=== PATIENT | male | born 1965 | race Caucasian/White ===

== ENCOUNTER → 2018-02-18 16:11 | Outpatient (CLI) | payer OTHER, SELFPAY | PROVIDERS: PCP Internal Medicine Addiction Medicine; Visit Provider Nurse Practitioner Family | DX: R40.0 Somnolence (principal); R06.83 Snoring; R00.1 Bradycardia, unspecified; R53.83 Other fatigue | CPT/HCPCS: 95806 ==

== ENCOUNTER → 2020-10-05 15:08 | Outpatient (CLI) | payer OTHER, SELFPAY ==
--- NOTE | 2020-10-05 15:12 | US_ITS ---
PROCEDURE: US TESTICULAR CLINICAL INDICATION: Pain and swelling COMPARISON: No exams were available for comparison FINDINGS: There is a small to medium-sized right-sided hydrocele. Right testicle has an unremarkable appearance measuring 4.8 x 2.5 by 3.6 cm. Blood flow is present. The epididymis has an unremarkable appearance. The left testicle measures 4.4 x 2.4 x 3 cm and has an unremarkable appearance. Blood flow noted. There is a small left hydrocele. There is a small left varicocele. IMPRESSION: Bilateral hydroceles. Small left varicocele Dictated by: Montana Foster MD 10/05/2020 16:20 Montana Foster MD in [place] 10/05/2020 16:20
--- NOTE | 2020-10-05 15:18 | US_ITS ---
PROCEDURE: US ABDOMEN LIMITED CLINICAL INDICATION: lower quadrant area Injury with pain, torn muscle COMPARISON: No exams were available for comparison FINDINGS: General survey is performed the lower abdomen the abdominal wall. No obvious muscular tear or hematoma evident. There are small bilateral lymph nodes. IMPRESSION: Unremarkable limited abdominal ultrasound as detailed above disc Dictated by: Montana Foster MD 10/05/2020 16:26 Montana Foster MD in [facility] 10/05/2020 16:26
== END ==
PROVIDERS: PCP Emergency Medicine; Visit Provider Emergency Medicine
DX: R10.9 Unspecified abdominal pain (principal); N50.82 Scrotal pain
CPT/HCPCS: 76705; 76870

== ENCOUNTER → 2020-10-26 08:57 | Outpatient (CLI) | payer OTHER, SELFPAY ==
[2020-10-26 10:07] LABS: Coronavirus 19 IgG Antibody Negative (Negative); Coronavirus 19 IgM Antibody Negative (Negative)
== END ==
PROVIDERS: Visit Provider Nurse Practitioner Family
DX: Z20.822 Contact with and (suspected) exposure to COVID-19 (principal)
CPT/HCPCS: 36415; 86328

== ENCOUNTER → 2020-11-09 11:38 | Outpatient (CLI) | payer OTHER, SELFPAY ==
--- NOTE | 2020-11-09 11:44 | XR_ITS ---
PROCEDURE: Three x-ray views left hand, 3 x-ray views left wrist, 3 x-ray views left forearm, 3 x-ray views left elbow CLINICAL INDICATION: fall/injury COMPARISON: None FINDINGS: There is a nondisplaced radial head fracture with elbow joint effusion. No additional fracture in the elbow, left forearm, left wrist, left hand. IMPRESSION: Acute left radial head fracture. Dictated by: Ruth Marie MD 11/09/2020 14:13 Ruth Marie MD in [facility] 11/09/2020 14:13
== END ==
PROVIDERS: PCP Emergency Medicine; Visit Provider Emergency Medicine
DX: S59.912A Unspecified injury of left forearm, initial encounter (principal); W19.XXXA Unspecified fall, initial encounter
CPT/HCPCS: 73080; 73090; 73110; 73130

== ENCOUNTER → 2020-12-25 14:08 | Outpatient (CLI) | payer OTHER, SELFPAY ==
--- NOTE | 2020-12-25 14:12 | XR_ITS ---
PROCEDURE: XR ELBOW LT MIN 3V CLINICAL INDICATION: left radial head fracture fu COMPARISON: CR XR ELBOW LT MIN 3V from 11/09/2020 FINDINGS: Nondisplaced longitudinal fracture involves the radial head with extension into the proximal articular surface not significantly changed from 11/09/2020. There is a displaced anterior fat pad. The joint spaces are well-preserved. No significant degenerative/arthritic changes. No erosive changes evident. Other findings:None. IMPRESSION: No change radial head fracture with intra-articular extension with elbow joint effusion Dictated by: Montana Foster MD 12/25/2020 15:27 Montana Foster MD in [place] 12/25/2020 15:27
== END ==
PROVIDERS: PCP Emergency Medicine; Visit Provider Orthopaedic Surgery
DX: S52.122A Displaced fracture of head of left radius, initial encounter for closed fracture (principal)
CPT/HCPCS: 73080

== ENCOUNTER 2021-04-08 10:54 | Emergency (ER) | payer OTHER, SELFPAY ==
[2021-04-08 11:50] VITALS: BP 146/92; PULSE 83; RESP 21; TEMP 36.8; O2SAT 98; BMI 34.2
--- NOTE | 2021-04-08 12:21 | HMH.EDUTC ---
[facility] Disposition Clinical Impression: Sinusitis Qualifiers: Sinusitis location: unspecified location Chronicity: unspecified Qualified Code(s): J32.9 - Chronic sinusitis, unspecified Disposition: Home, Self-Care Condition on Discharge: Good Instructions: Sinusitis, DI for Sinusitis Additional Instructions: *Monitor Temp, Over the counter Motrin or Tylenol as directed/as needed Tylenol every 4 hours and Motrin every 6 hours (as long as your family doctor has told you that you can take it) for fever or pain. and straight to ER if unable to lower temp less than 101.0 after medication given Drink plenty of water *Sleep elevated *Humidifier/Vaporizer *Flonase 2 sprays in each nostril daily but be aware that it may take 2-3 days before you notice improvement Follow up IMMEDIATELY for new or worsening symptoms or no Noticeable improvement over the next 48-72 hours. 911 for difficulty breathing or swallowing You were tested for today for COVID19 your test result should be back in the next 24-48 hours, you may call to the [facility] to see if your test results are back in the next 48 hours [phone] [facility] hours are 9am-9pm You was given a handout with instructions for Self Quarantine and Self isolation for while you wait on test results and what to do if they are positive If you are positive the Health Dept will be contacting you also Prescriptions: Fluticasone Propionate [Flonase 50mcg nasal spray 16gm] 1 spr NS DAILY #1 bottle Transmission Status: Pending to [facility] Azithromycin [Z-Berhane 250mg Tab] 250 mg PO DIRECTED #6 tab Transmission Status: Pending to [facility] Referrals: Derrick Freitas MD [Primary Care Provider] - As needed Time of Disposition: 12:47 Medical Decision Making - Ruben Inquiry Pt receiving controlled substance: No Ruben was queried for this patient: No Vital Signs: 04/08/21 11:50 Temperature 98.3 F Temperature Source Oral Pulse Rate [Right Brachial] 83 Respiratory Rate 21 Blood Pressure [Right Arm] 146/92 H Blood Pressure Mean [Right Arm] 110 Blood Pressure Source [Right Arm] Automatic Cuff Blood Pressure Position [Right Arm] Sitting 02 Sat by Pulse Oximetry 98 Oxygen Delivery Method Room Air Orders (Tests/Meds): ED MEDICATIONS Discontinued Medications Generic Name Dose Route Start Last Admin Trade Name Luis Enrique PRN Reason Stop Dose Admin Methylprednisolone Sodium Succinate 125 mg 04/08/21 12:23 04/08/21 12:30 Methylprednisolone Sod Succ 125mg Vial IM 04/08/21 12:24 125 mg ONCE ONE Administration ORDERS Category Date Time Status Covid-19 Nasal PCR ([facility]) Routine Lab 04/08/21 11:50 Received [facility] HPI - General Stated complaint: covid test Time Seen by Provider: 04/08/21 12:21 Mode of Arrival: Ambulatory Source of Information: Patient Limitations: No Limitations Description of Symptoms (Recalled from Triage Doc. by RN): PATIENT C/O NASAL CONGESTION AND SINUS PAIN SINCE THURSDAY. REQUESTING COVID TEST HEENT Symptoms (Recalled from RN notes): Yes Resp Symptoms (Recalled from RN notes): No Skin Symptoms (Recalled from RN notes): No MS Symptoms (Recalled from RN notes): No Functional Status (Recalled from RN notes): WNL - History of Present Illness Provider Complaint: Patient states that he has been having sinus congestion on and off for a couple of weeks but on Thursday he had a scratchy throat then started having sinus pain and pressure along with sinus congestion States that today he was not able to breath out of his nose and felt like he had some swelling in his sinuses under his eyes so he came in to get checked and wanted to get a COVID test to rule it out too - Related Data Home Medications Medication Instructions Recorded Confirmed levothyroxine 88 mcg capsule 88 mcg PO DAILY 10/05/20 12/25/20 tamsulosin 0.4 mg capsule 0.4 mg PO DAILY 10/05/20 12/25/20 testosterone 50 mg/5 gram (1 %) 1 packet TRANSDERMA DAILY 10/05/20 12/25/20 t
[2021-04-08 12:52] VITALS: BP 146/92; PULSE 83; RESP 21; TEMP 36.8; O2SAT 98
== END 2021-04-08 12:54 | disposition home or self-care (01) ==
PROVIDERS: Emergency Provider Nurse Practitioner; PCP Emergency Medicine
DX: J32.9 Chronic sinusitis, unspecified (principal); Z20.822 Contact with and (suspected) exposure to COVID-19; F17.290 Nicotine dependence, other tobacco product, uncomplicated; Z88.0 Allergy status to penicillin; Z88.2 Allergy status to sulfonamides
CPT/HCPCS: 96372; 99202; G0463; U0003

== ENCOUNTER → 2021-06-03 15:58 | Outpatient (CLI) | payer OTHER, SELFPAY ==
[2021-06-03 17:06] LABS: Coronavirus 19 IgG Antibody Positive (Negative); Coronavirus 19 IgM Antibody Negative (Negative)
== END ==
PROVIDERS: Visit Provider Nurse Practitioner Family
DX: Z20.822 Contact with and (suspected) exposure to COVID-19 (principal)
CPT/HCPCS: 86328

== ENCOUNTER → 2021-09-24 08:46 | Outpatient (CLI) | payer OTHER, SELFPAY | PROVIDERS: PCP Emergency Medicine; Visit Provider Nurse Practitioner | DX: Z20.822 Contact with and (suspected) exposure to COVID-19 (principal) | CPT/HCPCS: C9803; U0003; U0005 ==

== ENCOUNTER → 2021-10-22 16:42 | Outpatient (CLI) | payer OTHER, SELFPAY ==
[2021-10-22 18:14] LABS: Free T4 (Free Thyroxine) 1.31 ng/dl (0.78-2.19)
[2021-10-22 18:28] LABS: Thyroid Stimulating Hormone 4.37 uIU/mL (0.465-4.68)
== END ==
PROVIDERS: PCP Emergency Medicine; Visit Provider Emergency Medicine
DX: R53.83 Other fatigue (principal)
CPT/HCPCS: 84439; 84443

== ENCOUNTER → 2021-11-13 16:00 | Outpatient (CLI) | payer OTHER, SELFPAY ==
[2021-11-13 18:32] LABS: Basophils # 0.1 K/mm3 (0-0.2); Basophils % 1.5 % (0.1-2.0); Eosinophils # 0.2 K/mm3 (0.0-0.4); Eosinophils % 2.2 % (0.1-12.0); Hematocrit 49.9 % (42.0-52.0); Hemoglobin 16.3 g/dL (14.1-18.0); Lymphocytes # 3.1 K/mm3 (0.7-4.5); Lymphocytes % 40.9 % (10-50); Mean Corpuscular HGB Conc 32.6 g/dL (31.8-35.4); Mean Corpuscular Hemoglobin 30.9 pg (27.0-31.2); Mean Corpuscular Volume 94.8 fl (80-94); Mean Platelet Volume 7.9 fl (7.4-10.4); Monocytes # 0.4 K/mm3 (0.1-1.0); Monocytes % 4.8 % (1.7-9.3); Neutrophils # 3.8 K/mm3 (1.8-7.8); Neutrophils % 50.6 % (37.0-80.0); Platelet Count 316 K/mm3 (142-424); Red Blood Count 5.26 M/mm3 (4.60-6.20); Red Cell Distribution Width 13.4 % (11.5-17.5); White Blood Count 7.5 K/mm3 (4.8-10.8)
[2021-11-13 18:51] LABS: Alanine Aminotransferase 51 U/L (12-78); Albumin Level 4.9 g/dl (3.5-5.0); Alkaline Phosphatase 80 U/L (38-126); Anion Gap 14.2 mEq/L (5-15); Aspartate Amino Transferase 42 U/L (17-59); Bilirubin,Total 0.6 mg/dl (0.2-1.3); Blood Urea Nitrogen 12 mg/dl (9-20); Calcium 9.4 mg/dl (8.4-10.2); Carbon Dioxide 25 mmol/L (22.0-30.0); Chloride 106 mmol/L (98-107); Chol/HDL Ratio 5.4 (1-3.5); Cholesterol 193 mg/dl (140-200); Estimated Glomerular Filt Rate 100 ml/min (>60); GFR (African American) 121 ML/MIN (>60); Globulin 2.4 g/dL (1.3-3.2); Glucose 94 mg/dl (74-100); HDL Cholesterol 36 mg/dl (40-60); Potassium 4.2 mmoL/L (3.5-5.1); Sodium 141 mmol/L (136-145); Total Protein,Serum 7.3 g/dl (6.3-8.2); Triglycerides 98 mg/dl (30-150); VLDL Cholesterol 20 mg/dL (0-40)
[2021-11-13 19:04] LABS: Direct LDL Cholesterol 143.11 mg/dL (100-129)
[2021-11-13 19:10] LABS: 25-OH Vitamin D, Total 50.1 ng/mL (30-100)
[2021-11-13 19:11] LABS: Free T4 (Free Thyroxine) 1.37 ng/dl (0.78-2.19)
[2021-11-13 19:24] LABS: Prostate Specific Ag Screen 1.1 ng/ml (0.0-4.0); Thyroid Stimulating Hormone 3.55 uIU/mL (0.465-4.68)
[2021-11-13 19:42] LABS: Vitamin B12 558 pg/mL (239-931)
== END ==
PROVIDERS: Visit Provider Emergency Medicine
DX: R53.83 Other fatigue (principal); E03.9 Hypothyroidism, unspecified; K59.00 Constipation, unspecified; Z12.5 Encounter for screening for malignant neoplasm of prostate
CPT/HCPCS: 80053; 80061; 82306; 82607; 84439; 84443; 85025; G0103

== ENCOUNTER → 2021-11-30 07:50 | Outpatient (CLI) | payer OTHER, SELFPAY ==
--- NOTE | 2021-11-30 07:51 | MR_ITS ---
FINAL REPORT CLINICAL HISTORY: right elbow pain. nki. pain with lifting and pulling. FINDINGS: Multiplanar MR imaging of the right elbow was performed without contrast. Artifact is noted which limits exam sensitivity. The bony structures are intact without evidence of fracture, bone bruise or marrow edema. There is no evidence of osteochondral lesion. The ligaments appear intact. There is a partial tear at the origin of the common extensor tendon. Intrasubstance tears are seen of the distal triceps tendon with tendinitis and peritendinitis. The common flexor tendon is intact. The biceps tendon is intact. The distal triceps tendon is intact. The brachialis tendon is intact. The musculature has an unremarkable appearance. No soft tissue mass or cyst is identified. There is a small joint effusion. No focal abnormality is identified of the ulnar nerve. IMPRESSION: Partial tear at the origin of the common extensor tendon. Intrasubstance tears of the distal triceps tendon with tendinitis and peritendinitis. Small joint effusion. Reviewed, Interpreted and Dictated by Chadd Paniagua III, MD Transcribed by Radha Gallagher Authenticated by Chadd Paniagua III, MD on 12/02/2021 08:04:48 AM [facility]
== END ==
PROVIDERS: PCP Emergency Medicine; Visit Provider Emergency Medicine
DX: M25.521 Pain in right elbow (principal)
CPT/HCPCS: 73221

== ENCOUNTER 2022-02-24 16:00 | Outpatient (RCR) | payer OTHER, SELFPAY | END 2022-04-01 16:30 | disposition home or self-care (01) | LOC: PT.CARL 16:00 | PROVIDERS: PCP Emergency Medicine; Visit Provider Orthopaedic Surgery | DX: S46.201A Unspecified injury of muscle, fascia and tendon of other parts of biceps, right arm, initial encounter (principal) | CPT/HCPCS: 20560; 20561; 97010; 97014; 97033; 97035; 97110; 97163; 97530; G0283 ==

== ENCOUNTER → 2022-06-25 16:45 | Outpatient (CLI) | payer OTHER, SELFPAY | LOC: LAB.DROPOF 06-26 06:42 | PROVIDERS: PCP Emergency Medicine; Visit Provider Emergency Medicine | DX: R82.90 Unspecified abnormal findings in urine (principal) | CPT/HCPCS: 87086 ==

== ENCOUNTER → 2022-07-04 07:18 | Outpatient (CLI) | payer OTHER, SELFPAY ==
--- NOTE | 2022-07-04 07:19 | CT_ITS ---
FINAL REPORT CLINICAL HISTORY: renal colic FINDINGS: Axial CT images of the abdomen and pelvis were obtained without intravenous contrast. Coronal reformatted images were also obtained.This study was performed with techniques to keep radiation doses as low as reasonably achievable (ALARA). Individualized dose reduction techniques using automated exposure control or adjustment of mA and/or kV according to the patient's size were employed. Abdomen: The lung bases are clear. There are several less than 3 mm nonobstructing bilateral renal stones. There is no hydronephrosis. There is a 5 mm distal right ureteral stone at the level of the mid pelvis. There is periureteral stranding at this level likely representing edema. The gallbladder is present. The liver, spleen and pancreas have an unremarkable, unenhanced appearance. No mass or adenopathy is seen. Pelvis: Images of the pelvis reveal no mass or abnormal fluid collection. The appendix is normal. There are phleboliths in the pelvis. IMPRESSION: Distal right ureteral stone with periureteral stranding but no hydronephrosis or hydroureter. Bilateral nephrolithiasis. Reviewed, Interpreted and Dictated by Chadd Paniagua III, MD Transcribed by Ernesto Thacker Authenticated and [facility]
== END ==
PROVIDERS: PCP Emergency Medicine; Visit Provider Emergency Medicine
DX: N23 Unspecified renal colic (principal)
CPT/HCPCS: 74176

== ENCOUNTER 2022-08-11 16:00 | Outpatient (RCR) | payer OTHER, SELFPAY | END 2022-08-21 14:57 | disposition home or self-care (01) | LOC: PT.CARL 16:00 | PROVIDERS: PCP Emergency Medicine; Visit Provider Orthopaedic Surgery | DX: S46.211A Strain of muscle, fascia and tendon of other parts of biceps, right arm, initial encounter (principal); Z98.890 Other specified postprocedural states | CPT/HCPCS: 97010; 97014; 97110; 97140; 97163; 97530; G0283 ==

== ENCOUNTER → 2023-03-12 09:40 | Outpatient (CLI) | payer OTHER, SELFPAY ==
--- NOTE | 2023-03-12 09:40 | US_ITS ---
FINAL REPORT CLINICAL HISTORY: DYSPHAGIA FINDINGS: Thyroid ultrasound: The right lobe of the thyroid gland measures 4.3 x 1.3 x 2.3 cm in size. The lobe is heterogeneous in echotexture. There are 2 right sided nodules, isoechoic and solid, measuring up to 9 mm in diameter. These are category TI-RADS 3 nodules. The left lobe of the thyroid gland measures 3.4 x 1.35 x 1.7 cm in size. There is 1 hypoechoic nodule in the left thyroid lobe that measures 4 mm in size, a TI-RADS category 4 nodule. The isthmus of the thyroid gland measures 0.3 cm in thickness. IMPRESSION: Heterogeneous thyroid gland diffusely, with 3 subcentimeter nodules as described above. Per TI-RADS criteria no follow-up of these nodules is required. Reviewed, Interpreted and Dictated by Brayan Goldberg MD Transcribed by Catrina Prather Authenticated and [facility]
== END ==
PROVIDERS: PCP Emergency Medicine; Visit Provider Emergency Medicine
DX: R13.10 Dysphagia, unspecified (principal)
CPT/HCPCS: 76536

== ENCOUNTER 2024-01-02 22:18 | Emergency (ER) | payer OTHER, SELFPAY ==
--- NOTE | 2024-01-02 22:31 | CT_ITS ---
PROCEDURE INFORMATION: Exam: CT Abdomen And Pelvis With Contrast Exam date and time: 01/02/2024 11:14 PM Age: 58 years old Clinical indication: Abdominal pain; Additional info: Crohn's, llq pain TECHNIQUE: Imaging protocol: Computed tomography of the abdomen and pelvis with contrast. Radiation optimization: All CT scans at this facility use at least one of these dose optimization techniques: automated exposure control; mA and/or kV adjustment per patient size (includes targeted exams where dose is matched to clinical indication); or iterative reconstruction. Contrast material: ISOVUE; Contrast volume: 75 ml; Contrast route: IV; COMPARISON: CT ABDOMEN PELVIS WO CON 07/04/2022 7:22 AM FINDINGS: Liver: Mild hepatic steatosis. No hepatomegaly or liver lesion. Gallbladder and bile ducts: Normal. No calcified stones. No ductal dilation. Pancreas: Normal. No ductal dilation. Spleen: Normal. No splenomegaly. Adrenal glands: Normal. No mass. Kidneys and ureters: Mild left hydronephrosis secondary to a 4 x 3 mm calculus in the proximal ureter. Bilateral 1-2 mm calyceal calculi. No renal masses or cysts. Stomach and bowel: Unremarkable. No obstruction. No mucosal thickening. Appendix: No evidence of appendicitis. Intraperitoneal space: Unremarkable. No free air. No significant fluid collection. Vasculature: Minimal atherosclerotic disease without aneurysm. Lymph nodes: Unremarkable. No enlarged lymph nodes. Urinary bladder: Unremarkable as visualized. Reproductive: Unremarkable as visualized. Bones/joints: Unremarkable. No acute fracture. Soft tissues: Small fat containing umbilical hernia. IMPRESSION: 1. Mild left hydronephrosis secondary to a 4 x 3 mm calculus in the proximal ureter. 2. Normal-appearing large and small bowel.
--- NOTE | 2024-01-02 22:33 | HMH.EDGENADL ---
Discharge Plan Disposition Patient Disposition: Home, Self-Care Prescriptions Prescriptions: New promethazine 25 mg suppository 25 mg MT Q6H PRN (Reason: sedation) Qty: 12 0RF ketorolac 10 mg tablet 10 mg PO Q4-6H PRN (Reason: pain) 17 Days Qty: 30 0RF oxycodone 5 mg tablet 5 mg PO Q8H PRN (Reason: pain) Qty: 12 0RF No Action mesalamine [Lialda] 1.2 gram tablet,delayed release (DR/EC) 2.4 g PO DAILY Men 50 Plus Multivitamin 300-600-300 mcg tablet 1 tab PO DAILY levofloxacin 500 mg tablet 500 mg PO DAILY Qty: 7 0RF testosterone 20.25 mg/1.25 gram (1.62 %) gel in metered-dose pump 2 pump topical DAILY Qty: 75 0RF levothyroxine 88 mcg tablet See Rx Instructions .ROUTE .COMPLEX Qty: 90 2RF Dose Instruction: TAKE ONE TABLET BY MOUTH EVERY DAY Rx Instructions: TAKE ONE TABLET BY MOUTH EVERY DAY tamsulosin [Flomax] 0.4 mg capsule 0.4 mg PO DAILY Qty: 90 3RF fluticasone propionate 120 SPR/BOT bottle 1 spr intranasal DAILY Qty: 1 0RF Rx Instructions: each nostril daily Referrals Follow up/Referrals: Elliot Greer MD [Primary Care Provider] - See instructions Activity Restrictions/Add. Instructions Additional Instructions/Restrictions: Please take tamsulosin, antiemetics and pain medications as needed for symptomatic control. If you develop fever or uncontrollable pain, recommend returning to be evaluated. Recommend following up with your urologist. Clinical Impressions Clinical Impression: Hydronephrosis concurrent with and due to calculi of kidney and ureter, Abdominal pain, LLQ Discharge ED Provider: Evin Rebolledo General Adult HPI <Evin Rebolledo MD - Last Filed: 01/02/24 22:51> General Chief complaint: PAIN Stated complaint: Lower left abdominal pain Time Seen by Provider: 01/02/24 22:23 History of Present Illness HPI narrative: Patient is a 58-year-old male with past medical history of Crohn's on mesalamine, previous ureterolithiasis requiring lithotripsy who presents emergency department for evaluation of left lower quadrant abdominal pain. Onset was acute, occurring approximately 930, severe and debilitating with associated retching, no vomiting. Last bowel movement yesterday. Passing flatus today. Bowel movements are intermittently formed versus diarrhea at baseline, nonbloody. Patient has never had surgery in his abdomen. No scrotal pain or significant dysuria. Pain has largely subsided prior to arrival. He presents here for continued evaluation. Related Data Home Medications Medication Instructions Recorded Confirmed mesalamine 1.2 gram tablet,delayed 2.4 g PO DAILY 11/13/21 06/25/22 release (Lialda) sqgezbyi-qr-errif 300 mcg-K 60 1 tab PO DAILY 06/25/22 06/25/22 mcg-lycop 600 mcg-lutein 300 mcg tablet (Men 50 Plus Multivitamin) Previous Rx's Medication Instructions Recorded fluticasone propionate 50 1 spr intranasal DAILY ##1 04/08/21 mcg/actuation nasal spray,suspension levofloxacin 500 mg tablet 500 mg PO DAILY #7 tabs 06/25/22 testosterone 2 pump topical DAILY #75 grams 06/24/23 levothyroxine 88 mcg tablet See Rx Instructions .Route 09/16/23 .COMPLEX #90 tabs tamsulosin 0.4 mg capsule (Flomax) 0.4 mg PO DAILY #90 caps 10/12/23 ketorolac 10 mg tablet 10 mg PO Q4-6H PRN pain 17 days 01/02/24 #30 tabs oxycodone 5 mg tablet 5 mg PO Q8H PRN pain #12 tabs 01/02/24 promethazine 25 mg rectal 25 mg MT Q6H PRN sedation #12 ea 01/02/24 suppository Allergies Allergy/AdvReac Type Severity Reaction Status Date / Time Penicillins Allergy Mild Rash Verified 06/25/22 16:39 Sulfa (Sulfonamide Allergy Verified 06/25/22 16:39 Antibiotics) [facility] <Evin Rebolledo MD - Last Filed: 01/02/24 22:51> [facility] Disclaimer: The information contained in this section may have been updated after the patient was seen, as this information can be updated by other users. Medical History (Updated 01/02/24 @ 23:46 by Maury Mendez MD) Kidney stones Social History (Updated 06/25/22 @ 16:45 by CLARIBEL Latif) Smoking Status: Never smoker second hand exposure: No alcohol intake: current substance use type: denies use current occupational status: employed and other Travel in the last 8 weeks: None housing: house <Evin Rebolledo MD - Last Filed: 01/02/24 22:51> ROS Obtained: Yes Systems reviewed as appropriate & no additional complaints except as documented Physical Exam <Evin Rebolledo MD - Last Filed: 01/02/24 22:51> General General appearance: alert and in no apparent distress Head Head exam: atraumatic and normocephalic Eye Eye exam: Present PERRL ENT ENT exam: Present mucous membranes moist Neck Neck exam: Present normal inspection Chest Chest inspection: Present normal inspection and symmetric chest wall rise Respiratory Respiratory exam: Absent respiratory distress Cardiovascular Cardiovascular exam: Present regular rate and normal rhythm Abdominal Exam Abdominal exam: Present soft and other (No hernias palpated in the inguinal region); Absent tenderness Extremities Exam Extremities exam: Present normal inspection Neurological Exam Neurological exam: Present alert Psychiatric Psychiatric exam: Present normal affect Skin Skin exam: Present warm and dry Medical Decision Making <Evin Rebolledo MD - Last Filed: 01/02/24 22:51> Ruben Inquiry Pt receiving controlled substance: No Vital Signs: 01/02/24 22:44 Temperature 98.2 F Temperature Source Oral Pulse Rate [Right Brachial] 77 Respiratory Rate 18 Blood Pressure [Right Arm] 116/113 H Blood Pressure Mean [Right Arm] 114 Blood Pressure Source [Right Arm] Automatic Cuff Blood Pressure Position [Right Arm] Sitting 02 Sat by Pulse Oximetry 96 Oxygen Delivery Method Room Air Lab Data Lab Results 01/02/24 22:24: Urine Color Yellow, Urine Appearance Clear, Urine pH 6.0, Ur Specific Higginson >= 1.030, Urine Protein Negative, Urine Glucose (UA) Negative, Urine Ketones Negative, Urine Blood 2+, Urine Nitrate Negative, Urine Bilirubin Negative, Urine Urobilinogen 0.2, Ur Leukocyte Esterase Negative, Urine RBC 20-50, Urine WBC Occasional, Ur Squamous Epith Cells Occasional, Urine Bacteria Trace 01/02/24 22:42: WBC 8.3, RBC 4.92, Hgb 15.2, Hct 47.1, MCV 95.8 H, MCH 30.8, MCHC 32.2, RDW 13.6, Plt Count 257, MPV 7.9, Neut % (Auto) 51.4, Lymph % (Auto) 36.5, Hughes % (Auto) 7.2, Eos % (Auto) 3.0, Baso % (Auto) 1.9, Neut # (Auto) 4.2, Lymph # (Auto) 3.0, Hughes # (Auto) 0.6, Eos # (Auto) 0.3, Baso # (Auto) 0.2, ESR 5, Sodium 141, Potassium 3.6, Chloride 109 H, Carbon Dioxide 26, Anion Gap 9.6, BUN 13, Creatinine 0.80, Estimated Creat Clear 144, Estimated GFR 99, Est GFR ( Amer) 120, Glucose 114 H, Calcium 9.2, Total Bilirubin 0.5, AST 36, ALT 40, Alkaline Phosphatase 81, Total Protein 6.6, Albumin 4.2, Globulin 2.4, Albumin/Globulin Ratio 1.8, Lipase 215 01/02/24 22:42 01/02/24 22:42 Orders (Tests/Meds): ED MEDICATIONS Discontinued Medications Generic Name Dose Route Start Last Admin Trade Name Freq PRN Reason Stop Dose Admin Iopamidol 75 ml 01/02/24 23:20 01/02/24 23:21 Iopamidol-370 (76%);100ml Bottle IV 01/02/24 23:21 75 ml ONCE ONE Administration Ketorolac Tromethamine 30 mg 01/02/24 22:31 01/02/24 23:01 Ketorolac 30mg/Ml Vial IV 01/02/24 22:32 30 mg ONCE ONE Administration Ondansetron HCl 4 mg 01/02/24 22:59 01/02/24 23:01 Ondansetron 4mg/2ml Vial IV 01/02/24 23:00 4 mg ONCE ONE Administration Sodium Chloride 10 ml 01/02/24 23:20 01/02/24 23:21 Sodium Chloride 0.9% 10ml Syr (Rad Only) IV 01/02/24 23:21 10 ml ONCE ONE Administration ORDERS Category Date Time Status CT abdomen pelvis w con Stat Cat Scan 01/02/24 22:31 Completed CBC w/Auto Diff [Complete Blood Count Auto Diff] Stat Lab 01/02/24 22:42 Completed CMP [Comprehensive Metabolic Panel] Stat Lab 01/02/24 22:42 Completed ESR [Erythrocyte Sedimentation Rate] Stat Lab 01/02/24 22:42 Completed Lipase Stat Lab 01/02/24 22:42 Completed UA [Urinalysis and Microscopic] Stat Lab 01/02/24 22:24 Completed Medical Decision Narrative: In summary patient is 58-year-old male past medical history described above presents emergency department for evaluation of left lower quadrant abdominal pain in the setting of Crohn's and previous ureterolithiasis requiring lithotripsy. Patient is hemodynamically stable and nontoxic-appearing upon arrival, afebrile. Differential diagnosis includes ureterolithiasis, diverticulitis, among others. Workup will be conducted with hematologic labs, urinalysis, CT abdomen pelvis with IV contrast. Initial inventions include Toradol. Workup was largely pending at time of transfer of care to the oncoming physician, Dr. Mendez. <Maury Mendez MD - Last Filed: 01/03/24 00:06> Vital Signs: 01/02/24 22:44 Temperature 98.2 F Temperature Source Oral Pulse Rate [Right Brachial] 77 Respiratory Rate 18 Blood Pressure [Right Arm] 116/113 H Blood Pressure Mean [Right Arm] 114 Blood Pressure Source [Right Arm] Automatic Cuff Blood Pressure Position [Right Arm] Sitting 02 Sat by Pulse Oximetry 96 Oxygen Delivery Method Room Air Lab Data Lab Results 01/02/24 22:24: Urine Color Yellow, Urine Appearance Clear, Urine pH 6.0, Ur Specific Higginson >= 1.030, Urine Protein Negative, Urine Glucose (UA) Negative, Urine Ketones Negative, Urine Blood 2+, Urine Nitrate Negative, Urine Bilirubin Negative, Urine Urobilinogen 0.2, Ur Leukocyte Esterase Negative, Urine RBC 20-50, Urine WBC Occasional, Ur Squamous Epith Cells Occasional, Urine Bacteria Trace 01/02/24 22:42: WBC 8.3, RBC 4.92, Hgb 15.2, Hct 47.1, MCV 95.8 H, MCH 30.8, MCHC 32.2, RDW 13.6, Plt Count 257, MPV 7.9, Neut % (Auto) 51.4, Lymph % (Auto) 36.5, Hughes % (Auto) 7.2, Eos % (Auto) 3.0, Baso % (Auto) 1.9, Neut # (Auto) 4.2, Lymph # (Auto) 3.0, Hughes # (Auto) 0.6, Eos # (Auto) 0.3, Baso # (Auto) 0.2, ESR 5, Sodium 141, Potassium 3.6, Chloride 109 H, Carbon Dioxide 26, Anion Gap 9.6, BUN 13, Creatinine 0.80, Estimated Creat Clear 144, Estimated GFR 99, Est GFR ( Amer) 120, Glucose 114 H, Calcium 9.2, Total Bilirubin 0.5, AST 36, ALT 40, Alkaline Phosphatase 81, Total Protein 6.6, Albumin 4.2, Globulin 2.4, Albumin/Globulin Ratio 1.8, Lipase 215 Orders (Tests/Meds): ED MEDICATIONS Discontinued Medications Generic Name Dose Route Start Last Admin Trade Name Freq PRN Reason Stop Dose Admin Iopamidol 75 ml 01/02/24 23:20 01/02/24 23:21 Iopamidol-370 (76%);100ml Bottle IV 01/02/24 23:21 75 ml ONCE ONE Administration Ketorolac Tromethamine 30 mg 01/02/24 22:31 01/02/24 23:01 Ketorolac 30mg/Ml Vial IV 01/02/24 22:32 30 mg ONCE ONE Administration Ondansetron HCl 4 mg 01/02/24 22:59 01/02/24 23:01 Ondansetron 4mg/2ml Vial IV 01/02/24 23:00 4 mg ONCE ONE Administration Sodium Chloride 10 ml 01/02/24 23:20 01/02/24 23:21 Sodium Chloride 0.9% 10ml Syr (Rad Only) IV 01/02/24 23:21 10 ml ONCE ONE Administration ORDERS Category Date Time Status CT abdomen pelvis w con Stat Cat Scan 01/02/24 22:31 Completed CBC w/Auto Diff [Complete Blood Count Auto Diff] Stat Lab 01/02/24 22:42 Completed CMP [Comprehensive Metabolic Panel] Stat Lab 01/02/24 22:42 Completed ESR [Erythrocyte Sedimentation Rate] Stat Lab 01/02/24 22:42 Completed Lipase Stat Lab 01/02/24 22:42 Completed UA [Urinalysis and Microscopic] Stat Lab 01/02/24 22:24 Completed Medical Decision Narrative: In summary patient is 58-year-old male past medical history described above presents emergency department for evaluation of left lower quadrant abdominal pain in the setting of Crohn's and previous ureterolithiasis requiring lithotripsy. Patient is hemodynamically stable and nontoxic-appearing upon arrival, afebrile. Differential diagnosis includes ureterolithiasis, diverticulitis, among others. Workup will be conducted with hematologic labs, urinalysis, CT abdomen pelvis with IV contrast. Initial inventions include Toradol. Workup was largely pending at time of transfer of care to the oncoming physician, Dr. Mendez. On reassessment, on my interpretation of laboratory studies, urine shows no evidence of infection, does show many red blood cells. CBC and CMP are nonactionable. CT independently interpreted me and shows approximately 4 x 3 mm left ureteral calculus with mild hydronephrosis. Otherwise unremarkable CT scan. I had extensive discussion with patient regarding these findings. He was discharged in stable condition with instructions to follow-up with his urologist and he was prescribed symptomatic pain medication and antiemetics. Return precautions given. Critical Care <Evin Rebolledo MD - Last Filed: 01/02/24 22:51> Critical Care Time Critical Care Time: No
[2024-01-02 22:44] VITALS: BP 116/113; PULSE 77; RESP 18; TEMP 36.8; O2SAT 96; BMI 32.3
[2024-01-02 22:45] LABS: Microscopic, Urine URINE MICROSCOPIC (MICROSCOPIC)
[2024-01-02 22:46] LABS: Appearance,Urine CLEAR (Clear); Bilirubin,Urine Negative (Negative); Blood, Urine 2+ (Negative); Color,Urine YELLOW (Yellow); Glucose,Urine (UA) Negative (Negative); Ketones,Urine Negative (Negative); Leukocyte Esterase,Urine Negative (Negative); Nitrate,Urine Negative (Negative); Protein,Urine Negative (Negative); Specific Gravity, Urine >= 1.030 (1.005-1.030); Urobilinogen,Urine 0.2 EU/dl (0.2)
[2024-01-02 22:57] LABS: Bacteria,Urine Trace /lpf; RBC,Urine 20-50 #/hpf (0-3); Squamous Epithelial Cell,Urine Occasional #/hpf (0-5); WBC,Urine Occasional #/hpf (0-3)
[2024-01-02 22:57] LABS: Basophils # 0.2 K/mm3 (0-0.2); Basophils % 1.9 % (0.1-2.0); Eosinophils # 0.3 K/mm3 (0.0-0.4); Hematocrit 47.1 % (42.0-52.0); Hemoglobin 15.2 g/dL (14.1-18.0); Lymphocytes % 36.5 % (10-50); Mean Corpuscular HGB Conc 32.2 g/dL (31.8-35.4); Mean Corpuscular Hemoglobin 30.8 pg (27.0-31.2); Mean Corpuscular Volume 95.8 fl (80-94); Mean Platelet Volume 7.9 fl (7.4-10.4); Monocytes # 0.6 K/mm3 (0.1-1.0); Monocytes % 7.2 % (1.7-9.3); Neutrophils # 4.2 K/mm3 (1.8-7.8); Neutrophils % 51.4 % (37.0-80.0); Platelet Count 257 K/mm3 (142-424); Red Blood Count 4.92 M/mm3 (4.60-6.20); Red Cell Distribution Width 13.6 % (11.5-17.5); White Blood Count 8.3 K/mm3 (4.8-10.8)
[2024-01-02 23:00] LABS: Chloride 109 mmol/L (98-107); Potassium 3.6 mmoL/L (3.5-5.1); Sodium 141 mmol/L (136-145)
[2024-01-02] MEDS: ONDANSETRON 4MG/2ML VIAL 4 MG IV (23:01)
[2024-01-02] MEDS: KETOROLAC 30MG/ML VIAL 30 MG IV (23:01)
[2024-01-02 23:02] LABS: Alanine Aminotransferase 40 U/L (12-78); Aspartate Amino Transferase 36 U/L (17-59); Blood Urea Nitrogen 13 mg/dl (9-20); Creatinine Clearance Estimated 144 mL/min (50-200); Estimated Glomerular Filt Rate 99 ml/min (>60); GFR (African American) 120 ML/MIN (>60)
[2024-01-02 23:03] LABS: Albumin Level 4.2 g/dl (3.5-5.0); Albumin/Globulin Ratio 1.8 (1.1-1.8); Alkaline Phosphatase 81 U/L (38-126); Anion Gap 9.6 mEq/L (5-15); Bilirubin,Total 0.5 mg/dl (0.2-1.3); Calcium 9.2 mg/dl (8.4-10.2); Carbon Dioxide 26 mmol/L (22.0-30.0); Globulin 2.4 g/dL (1.3-3.2); Glucose 114 mg/dl (74-100); Total Protein,Serum 6.6 g/dl (6.3-8.2)
[2024-01-02 23:12] LABS: Lipase 215 U/L (23-300)
--- NOTE | 2024-01-02 23:12 | PC.NURSE ---
Pt in CT
[2024-01-02] MEDS: IOPAMIDOL-370 (76%);100ML BOTTLE 75 ML IV (23:21)
[2024-01-02] MEDS: SODIUM CHLORIDE 0.9% 10ML SYR (RAD ONLY) 10 ML IV (23:21)
[2024-01-02 23:24] LABS: Erythrocyte Sedimentation Rate 5 mm/hr (0-20)
[2024-01-03 00:13] VITALS: BP 155/92; PULSE 66; RESP 15; TEMP 36.7; O2SAT 97
== END 2024-01-03 00:14 | disposition home or self-care (01) ==
PROVIDERS: Emergency Provider Emergency Medicine; PCP Family Medicine
DX: N13.0 Hydronephrosis with ureteropelvic junction obstruction (principal); R10.32 Left lower quadrant pain; R11.0 Nausea; Z87.442 Personal history of urinary calculi; K50.90 Crohn's disease, unspecified, without complications
CPT/HCPCS: 74177; 80053; 81001; 83690; 85025; 85651; 96374; 96375; 99285; J2405; Q9967

== ENCOUNTER 2024-03-02 21:50 | Outpatient (CLI) | payer OTHER, SELFPAY ==
[2024-03-11 14:06] LABS: Size 6x5; Specimen Type Not Provided
[2024-03-11 14:07] LABS: Ca oxalate dihydrate 70
== END 2024-03-02 23:59 | disposition home or self-care (01) ==
LOC: LAB.DROPOF 21:51
PROVIDERS: PCP Family Medicine; Visit Provider Family Medicine
DX: N13.2 Hydronephrosis with renal and ureteral calculous obstruction (principal)
CPT/HCPCS: 82370

== ENCOUNTER 2024-04-01 10:53 | Outpatient (CLI) | payer OTHER, SELFPAY ==
[2024-04-01 16:17] LABS: Basophils # 0.1 K/mm3 (0-0.2); Basophils % 1.3 % (0.1-2.0); Eosinophils # 0.1 K/mm3 (0.0-0.4); Eosinophils % 1.8 % (0.1-12.0); Hematocrit 46.8 % (42.0-52.0); Hemoglobin 15.8 g/dL (14.1-18.0); Lymphocytes # 2.3 K/mm3 (0.7-4.5); Lymphocytes % 37.2 % (10-50); Mean Corpuscular HGB Conc 33.8 g/dL (31.8-35.4); Mean Corpuscular Hemoglobin 32.3 pg (27.0-31.2); Mean Corpuscular Volume 95.6 fl (80-94); Mean Platelet Volume 8.9 fl (7.4-10.4); Monocytes # 0.4 K/mm3 (0.1-1.0); Monocytes % 6.9 % (1.7-9.3); Neutrophils # 3.2 K/mm3 (1.8-7.8); Neutrophils % 52.9 % (37.0-80.0); Platelet Count 243 K/mm3 (142-424); Red Cell Distribution Width 13.8 % (11.5-17.5); White Blood Count 6.1 K/mm3 (4.8-10.8)
[2024-04-01 16:27] LABS: Alanine Aminotransferase 37 U/L (12-78); Albumin Level 4.2 g/dl (3.5-5.0); Albumin/Globulin Ratio 1.8 (1.1-1.8); Alkaline Phosphatase 88 U/L (38-126); Anion Gap 10.4 mEq/L (5-15); Aspartate Amino Transferase 34 U/L (17-59); Bilirubin,Total 0.7 mg/dl (0.2-1.3); Blood Urea Nitrogen 11 mg/dl (9-20); Calcium 9.1 mg/dl (8.4-10.2); Carbon Dioxide 23 mmol/L (22.0-30.0); Chloride 111 mmol/L (98-107); Chol/HDL Ratio 5.3 (1-3.5); Cholesterol 165 mg/dl (140-200); Estimated Glomerular Filt Rate 99 ml/min (>60); GFR (African American) 119 ML/MIN (>60); Globulin 2.3 g/dL (1.3-3.2); Glucose 96 mg/dl (74-100); HDL Cholesterol 31 mg/dl (40-60); Potassium 4.4 mmoL/L (3.5-5.1); Sodium 140 mmol/L (136-145); Total Protein,Serum 6.5 g/dl (6.3-8.2); Triglycerides 90 mg/dl (30-150); VLDL Cholesterol 18 mg/dL (0-40)
[2024-04-01 16:39] LABS: Direct LDL Cholesterol 116.66 mg/dL (100-129)
[2024-04-01 16:57] LABS: Prostate Specific Ag Screen 1.1 ng/ml (0.0-4.0)
[2024-04-01 16:59] LABS: Thyroid Stimulating Hormone 3.64 uIU/mL (0.465-4.68)
[2024-04-07 21:07] LABS: Free Testosterone (Direct) 3.7 pg/mL (6.6-18.1); Testosterone, Total, LC/MS 282.3 ng/dL (264.0-916.0)
== END 2024-04-01 23:59 | disposition home or self-care (01) ==
LOC: LAB.DROPOF 04-04 10:54
PROVIDERS: Family Medicine; PCP Nurse Practitioner Family; Visit Provider Nurse Practitioner Family
DX: Z12.5 Encounter for screening for malignant neoplasm of prostate (principal); N13.2 Hydronephrosis with renal and ureteral calculous obstruction
CPT/HCPCS: 80050; 80053; 80061; 84443; 85025; G0103

== ENCOUNTER 2024-04-28 20:02 | Outpatient (CLI) | payer OTHER, SELFPAY ==
[2024-04-28 20:21] LABS: Microscopic, Urine URINE MICROSCOPIC (MICROSCOPIC)
[2024-04-28 20:32] LABS: Appearance,Urine CLEAR (Clear); Bilirubin,Urine Negative (Negative); Blood, Urine Negative (Negative); Color,Urine YELLOW (Yellow); Glucose,Urine (UA) Negative (Negative); Ketones,Urine TRACE (Negative); Leukocyte Esterase,Urine Negative (Negative); Nitrate,Urine Negative (Negative); Protein,Urine Negative (Negative); Specific Gravity, Urine 1.025 (1.005-1.030)
[2024-04-28 21:12] LABS: Bacteria,Urine Trace /lpf; RBC,Urine Occasional #/hpf (0-3); Squamous Epithelial Cell,Urine Occasional #/hpf (0-5); WBC,Urine Occasional #/hpf (0-3)
[2024-04-28 21:13] LABS: Calcium Oxalate Crystals,Urine 1+ /lpf; Mucus,Urine 1+ /lpf
== END 2024-04-28 23:59 | disposition home or self-care (01) ==
LOC: LAB.DROPOF 20:03
PROVIDERS: PCP Surgery; Visit Provider Surgery
DX: K42.9 Umbilical hernia without obstruction or gangrene (principal)
CPT/HCPCS: 81001

== ENCOUNTER 2024-05-09 06:56 | Day surgery (SDC) | payer OTHER, SELFPAY ==
[2024-05-04 13:23] VITALS: BMI 33.4
[2024-05-09] VITALS (10 sets, daily range): BP systolic 121–178; BP diastolic 67–99; PULSE 57–95; RESP 14–18; TEMP 36.2–36.6; O2SAT 94–97
[2024-05-09] MEDS: LACTATED RINGERS 1000ML 1,000 ML 25 ML IV (07:19)
--- NOTE | 2024-05-09 07:28 | P.PNANES_ITS ---
[facility] Disclaimer: The information contained in this section may have been updated after the patient was seen, as this information can be updated by other users. Medical History Hypothyroid Kidney stones Surgical History History of elbow surgery History of colonoscopy History of lithotripsy Family History (Updated 05/04/24 @ 13:21 by Arelis Mcgregor RN) Other No significant family history Social History (Updated 05/09/24 @ 07:10 by Arelis Mcgregor RN) Smoking Status: Never smoker second hand exposure: No alcohol intake: current substance use type: denies use current occupational status: employed and other Travel in the last 8 weeks: None housing: house [facility] Anesthesia Checklist Patient Identification Patient Identification: Arm Band, Family and Verbal (Name & ) Structural Data Admitted From: Home Planned Operative Procedure/s: Open UHR Consent for Planned Operative Procedure(s) Verified: Yes Verified Documents: Surgical Consent and History and Physical NPO Status Verified Time NPO: 18:00 Chart Verification Results Verified: CBC and BMP Additional verifications Patient : No Anesthesia Reactions: No Hx Blood Transfusions: No Cardiovascular Assessment Heart Sounds: S1 & S2 Pulse Rhythm: Irregular Peripheral Edema: No Airway Assessment Mallampati Score:: Class II C-Spine Mobility Assessed: Yes (FROM) TMJ Mobility Assessed: Yes Dentition: Good Dentition (Nothing loose per pt.) Neurological Assessment Level of Consciousness: Awake, Alert, Appropriate and Follows Commands Hx Seizures: No Numbness or tingling in extremities: No Anesthesia Plan Anesthesia Risk discussed: Yes Anesthesia Plan: Verified ASA Class: III Anesthesia Type: General
[2024-05-09] MEDS: CLINDAMYCIN PHOSPHATE/D5W 900 MG/50 ML PIGGYBACK 100 MG IV (08:40)
[2024-05-09] MEDS: ROPIVACAINE 0.5% 30ML VIAL 150 MG (08:50)
[2024-05-09] MEDS: LIDOCAINE 1% 20ML MDV 20 ML (08:50)
--- NOTE | 2024-05-09 09:19 | P.OP_ITS ---
Date of procedure: 05/09/24 Pre-op Diagnosis:: Umbilical hernia Post-op Diagnosis:: Same Procedure performed:: Open repair of umbilical hernia with placement of small (4.3 cm) Bard Ventralex mesh Surgeon:: Chadd Betancourt MD UTILITY INSPECTOR:: Darren Osullivan Anesthesia: MILAGROS Estimated blood loss (mL): 5 Clinical Note:: Patient presents for umbilical hernia repair. He is a 59-year-old male referred by Dr. Greer for umbilical hernia. Relatively recently he had presented to [facility] primary care provider's office with symptoms of rectus diastases with some concerns. Patient has been doing some exercises, mostly lower extremity. Recently he had noticed change in his umbilical area. He had always had inverted umbilicus and now it has become flat. He was noted to have a defect. He does wish to undergo repair. He was seen in the office on 04/14/2024. He had relatively small reducible umbilical hernia. Patient is rather active. He wished to go ahead and proceed with repair. Plan was for open umbilical hernia repair. Operative findings:: He had a small approximately 6 mm defect. Operative note:: Consent was obtained and patient was taken the operating room. He was positioned in supine position. General anesthesia was induced via endotracheal tube. Abdomen was prepped and draped in the standard surgical fashion. Subumbilical skin incision was made. Dissection was carried down through subcutaneous tissues. Umbilical skin was elevated and blunt dissection with some Metzenbaum dissection was used to dissected around the defect hernia sac. This was incised from the umbilicus using Metzenbaum dissection. The overall size of the defect appeared to measure about 6 mm. This was within the fascia preperitoneal. Some herniated preperitoneal subcutaneous tissues were excised using electrocautery. Peritoneum was opened to allow for mesh placement. Peritoneum and fascia was elevated as a small sized Bard Ventralex mesh was rolled and inserted into the abdominal cavity posterior to the defect. It was then elevated and positioned. The 2 tails were sutured to the fascia superiorly and inferiorly with a couple of 2-0 Prolene sutures. The tails w ere then cut flush with the fascia. Repair appeared adequate. Fascia was closed over the mesh with a single Ethibond suture. There was good hemostasis. Local anesthetic was infiltrated. Umbilical subdermis was reapproximated to the underlying fascia with several interrupted 2-0 Vicryl sutures. Subdermal tissues were closed with several 2-0 Vicryl. Skin was closed with 4-0 Monocryl in a subcuticular fashion. Dermabond and clean dry sterile dressing was applied. . Condition: stable Disposition: PACU Complications:: None immediately apparent
--- NOTE | 2024-05-09 09:24 | EXP.ANES.I ---
[facility] Anesthesia Record Part I Anesthesia Record I Intake, IV Amount: 1,000 Hydration: Adequate Estimated blood loss (mL): 5 Urine output (mL): 0 Blood Pressure: 124/79 SaO2: 94 Pulse Rate: 95 Airway Patency: Patent Respiratory Rate: 14 Temperature: 97.9 F Patient is:: Drowsy Stable to PACU at:: 09:22
--- NOTE | 2024-05-12 09:51 | EXP.ANES.II ---
[facility] Anesthesia Record Part II Anesthesia Record Part II Discharge Time: 09:52 Destination: Surgical Day Care (OP Surgery) PACU nurse assessment reviewed?: Yes Patient Condition:: Good Anesthesia Complications:: None Swallowing reflex intact?: Yes Airway Patency: Patent Cyanosis?: No Blood Pressure: 136/67 SaO2: 97 Respiratory Rate: 18 Pulse Rate: 68 Temperature: 97.7 F Mental Status: Alert & Oriented Pain level:: 0 Nausea and/or vomitting:: None Intake, IV Amount: 0 Hydration: Adequate
[2024-05-12 09:52] VITALS: BP 136/67; PULSE 68; RESP 18; TEMP 36.5; O2SAT 97
== END 2024-05-09 10:23 | disposition home or self-care (01) ==
PROVIDERS: PCP Family Medicine; Visit Provider Surgery
PROC: (CPT 49591; principal; 2024-05-09 08:30)
DX: K42.9 Umbilical hernia without obstruction or gangrene (principal)
CPT/HCPCS: 49591; 96374; J3490; C1781; J1100; J1885; J2250; J2405; J3010; J7120

== ENCOUNTER 2024-11-22 09:50 | Outpatient (CLI) | payer OTHER, SELFPAY | END 2024-11-22 23:59 | disposition home or self-care (01) | LOC: LAB.DROPOF 11-23 09:50 | PROVIDERS: PCP Family Medicine; Visit Provider Family Medicine | DX: R31.9 Hematuria, unspecified (principal); R35.1 Nocturia; R39.9 Unspecified symptoms and signs involving the genitourinary system | CPT/HCPCS: 87086 ==

== ENCOUNTER 2025-03-09 15:07 | Outpatient (CLI) | payer OTHER, SELFPAY ==
--- OUTSIDE RECORDS SUMMARY | 2025-03-09 15:10 | XMS_ITS | Clinical Summary ---
Author Organization [employer] Address [address] [place] [address] Care Team Providers Care Parts Picker Name Role Phone Derrick Freitas MD Primary Care Provider [phone] Allergies No known active allergies Medications docusate sodium (COLACE) 100 MG capsule Take 1 capsule by mouth 2 (two) times daily. 2 Active levothyroxine (SYNTHROID, LEVOTHROID) 88 MCG tablet Take 88 mcg by mouth daily. 2 Active tamsulosin (FLOMAX) 0.4 mg Cap 24 hr capsule Take 0.4 mg by mouth daily. 3 Active testosterone (ANDROGEL) 20.25 mg/1.25 gram (1.62 %) gel pump Apply topically. 2 Active mesalamine (LIALDA) 1.2 gram EC tabletIndications :Ulcerative pancolitis with complication (HCC),Change in bowel habits Take 1 tablet (1.2 g total) by mouth 4 (four) times daily for 90 days 2 pills twice a day. 360 tablet 3 3 Active multivitamin capsule Take 1 capsule by mouth daily. Active Active Problems Problem Noted Date Diagnosed Date Gastroesophageal reflux disease 10/31/2022 Hypothyroidism 10/31/2022 Dysrhythmias 10/31/2022 Family History Medical History Relation Name Comments No Known Problem Father No Known Problem Mother Relation Name Status Comments Father Mother Alive Social History Tobacco Use Types Packs/Day Years Used Date Smoking Tobacco: Former Cigarettes Smokeless Tobacco: Current Chew Comments:quit for 24 years Alcohol Use Standard Drinks/Week Comments Never 0 (1 standard drink = 0.6 oz pur e alcohol) Interpersonal Safety Answer Date Record ed Family or friends hurt you Not on file 10/08 Family or friends insult you Not on file Family or friends threaten you Not on file 0 10/08/2023 Family or friends scream or curse at you Not on file 10/08/2023 Housing Stability Answer Date Recorded Living situation today Not on file Living situation problems Not on file 2023 Food Insecurity Answer Date Recorded Food run out past 12 months Not on file 09/21 Food did not last past 12 months Not on file 10/08/2023 Employment Answer Date Recorded Help finding and keeping a job Not on file 0 10/08/2023 Family and Community Support Answer Farshad e Recorded Help with Day to Day Activities Not on file 10/08/2023 Feeling Lonely or Isolated Not on file 10/08 Educational Attainment Answer Date Lico rded Speak language other than Jordanian at home Not on file 10/08/2023 Want help with school or training Not on file 10/08/2023 Depression Answer Date Recorded PHQ-2 Risk Not on file 10/08/2023 Disabilities Answer Date Recorded Difficulty concentrating Not on file 024 Difficulty doing errands alone Not on file 0 10/08/2023 Substance Use Answer Date Recorded Used prescription meds for non-medical reasons N ot on file 10/08/2023 Used illegal drugs past 12 months Not on file 10/08/2023 Sex and Gender Information Value Date Recorded Sex Assigned at Not on file Legal Sex Male 5:20 PM CDT Gender Identity Not on file Sexual Orientation Not on file Last Filed Vital Signs Vital Sign Reading Time Taken Comments Blood Pressure 129/78 10/31/2022 9:40 AM EST Pulse 52 10/31/2022 9:40 AM EST Temperature 36.4 C (97.5 F) 10/31/2022 8:14 AM EST Respiratory Rate 16 10/31/2022 9:40 AM EST Oxygen Saturation 98% 10/31/2022 9:40 AM EST Inhaled Oxygen Concentration - - Weight 106.1 kg (234 lb) 10/31/2022 8:14 AM EST Height 175.3 cm (5' 9 ) 10/31/2022 8:14 AM EST Body Mass Index 34.56 10/31/2022 8:14 AM EST Plan of Treatment Health Maintenance Due Date Last Done Comments CT Colonography 1964 FOBT/FIT 1964 Fit-DNA (Cologuard) 1964 Sigmoidoscopy 1964 Depression Screening (12+) 1976 HIV Screening 1979 Hepatitis C Screening 1982 Lipid Panel 1999 Pneumococcal 50+ years (1 of 1 - PCV) 2014 Shingles Vaccine (Zoster) (1 of 2) 2014 Tobacco Cessation Counseling and Screening (12+) 10/3110/31/2022 COVID-19 VACCINE ( - season) 2024 Influenza Vaccine (Season Ended) 2025 DTAP/TDAP/TD VACCINES (2 - Td or Tdap) 06/21/2028 Colonoscopy 10/31/2032 10/31/2022 Colorectal Cancer Screening 10/31/2032 Respiratory Syncytial Virus (RSV) Adult or (1 - 1-dose 75+ series) 2039 Insurance [facility] [place] [id number] [facility] Advance Directives For more information, please contact: [phone] * Full Code (Latest Code Status on File) Date Activated Date Inactivated Comments 10/31/2022 7:03 AM 10/31/2022 11:06 AM -Attempt Re suscitation if person has no pulse and is not breathing. -If no pulse or not breathing attempt CPR/CODE. -Call Rapid Response if patient is in distress. Care Teams Parts Picker Relationship Specialty Start Date End Date Derrick Freitas MD [address] [place] [id number] PCP - General Family Medicine 10/23/22
--- OUTSIDE RECORDS SUMMARY | 2025-03-09 15:10 | XMS_ITS | Referral Summary ---
Author Organization [employer] Address [address] [place] [address] Care Team Providers Care Assistant Research Scientist Name Role Phone Derrick Freitas MD Primary Care Provider [phone] Allergies No known active allergies Medications docusate [...] reflux disease 10/31/2022 Hypothyroidism 10/31/2022 Dysrhythmias 10/31/2022 Social History Tobacco Use Types Packs/Day Years [...] Date Lico rded Speak language other than Slovenian at home Not on file 10/08/2023 Want [...] 10/31/2022 8:14 AM EST Plan of Treatment Not on file Insurance [address] [place] [id number] [facility] Advance Directives For more information, please contact: [phone] * Full Code (Latest Code Status on File) Date Activated Date Inactivated Comments 10/31/2022 7:03 AM 10/31/2022 11:06 AM -Attempt Re suscitation if person has no pulse and is not breathing. -If no pulse or not breathing attempt CPR/CODE. -Call Rapid Response if patient is in distress. Care Teams Assistant Research Scientist Relationship Specialty Start Date End Date Derrick Freitas MD [address] [place] [address] PCP - General Family Medicine 10/23/22
--- NOTE | 2025-03-09 15:12 | XR_ITS ---
FINAL REPORT CLINICAL HISTORY: left ankle injury medial side swelling, pain COMPARISON: None FINDINGS: AP, oblique, and lateral views of the left ankle were obtained. There is no fracture or dislocation. The ankle mortise is intact. Mild degenerative joint disease is present. Medial soft tissue swelling is noted in the ankle. IMPRESSION: Medial soft tissue swelling, with no acute osseous abnormality of the left ankle. Reviewed, Interpreted and Dictated by Melani Carrillo MD Transcribed by Catrina Prather Authenticated and [facility]
--- NOTE | 2025-03-09 15:12 | XR_ITS ---
FINAL REPORT CLINICAL HISTORY: left ankle injury medial side swelling, pain COMPARISON: None FINDINGS: AP, oblique and lateral views of the left foot were obtained. There is no acute fracture or dislocation. The joint spaces are preserved. Soft tissues are unremarkable. IMPRESSION: No acute osseous abnormality of the left foot. Reviewed, Interpreted and Dictated by Melani Carrillo MD Transcribed by Catrina Prather Authenticated and [facility]
== END 2025-03-09 23:59 | disposition home or self-care (01) ==
LOC: RAD 15:08
PROVIDERS: PCP Family Medicine; Visit Provider Nurse Practitioner Family
DX: M79.89 Other specified soft tissue disorders (principal); S99.912A Unspecified injury of left ankle, initial encounter
CPT/HCPCS: 73610; 73630

== ENCOUNTER 2025-03-23 09:45 | Outpatient (CLI) | payer OTHER, SELFPAY ==
[2025-03-23 21:23] LABS: Hematocrit 53.5 % (42.0-52.0); Hemoglobin 16.7 g/dL (14.1-18.0); Immature Granulocytes % 0.1 %; Mean Corpuscular HGB Conc 31.2 g/dL (31.8-35.4); Mean Corpuscular Hemoglobin 30.2 pg (27.0-31.2); Mean Corpuscular Volume 96.7 fl (80-94); Nucleated Red Blood Cells % 0 %; Platelet Count 243 K/mm3 (142-424); Red Blood Count 5.53 M/mm3 (4.60-6.20); Red Cell Distribution Width-SD 45.7 fL; White Blood Count 6.7 K/mm3 (4.8-10.8)
[2025-03-23 21:52] LABS: Alanine Aminotransferase 21 U/L (12-78); Albumin Level 4.8 g/dl (3.5-5.0); Albumin/Globulin Ratio 2.0 (1.1-1.8); Alkaline Phosphatase 73 U/L (38-126); Anion Gap 16.8 mEq/L (5-15); Aspartate Amino Transferase 25 U/L (17-59); Bilirubin,Total 0.9 mg/dl (0.2-1.3); Blood Urea Nitrogen 16 mg/dl (9-20); Calcium 9.8 mg/dl (8.4-10.2); Carbon Dioxide 27 mmol/L (22.0-30.0); Chloride 103 mmol/L (98-107); Cholesterol 141 mg/dl (140-200); Creatinine,Serum 0.90 mg/dl (0.66-1.25); Estimated Glomerular Filt Rate 86 ml/min (>60); GFR (African American) 104 ML/MIN (>60); Globulin 2.4 g/dL (1.3-3.2); Glucose 82 mg/dl (74-100); HDL Cholesterol 30 mg/dl (40-60); Potassium 4.8 mmoL/L (3.5-5.1); Sodium 142 mmol/L (136-145); Total Protein,Serum 7.2 g/dl (6.3-8.2); Triglycerides 53 mg/dl (30-150)
[2025-03-23 22:18] LABS: Hemoglobin A1C 6.3 % (4.0-6.0)
[2025-03-23 22:21] LABS: Thyroid Stimulating Hormone 2.36 uIU/mL (0.465-4.68)
[2025-03-23 22:36] LABS: Hepatitis C Ab Qual. W/ RFX NEGATIVE (Negative)
[2025-03-23 23:02] LABS: 25-OH Vitamin D, Total 56.9 ng/mL (30-100)
[2025-03-26 08:10] LABS: Hepatitis B Surface Antigen Negative (Negative); Testosterone,Total 514 ng/dL (264-916)
--- OUTSIDE RECORDS SUMMARY | 2025-03-27 09:58 | XMS_ITS | Referral Summary ---
Author Organization [employer] ([place], [place], [place], [place]) Address [address] [place] [address] Care Team Providers Care Director Financial Systems Name Role Phone Derrick Freitas MD Primary Care Provider [phone] Allergies No known active allergies Medications docusate [...] drink = 0.6 oz pur e alcohol) Food Insecurity Answer Date Recorded Food run [...] Date Lico rded Speak language other than Yi at home Not on file 10/08/2023 Want help with school or training Not on file 10/08/2023 Substance Use Answer Date Recorded Used [...] Plan of Treatment Not on file Insurance [facility] UMR Advance Directives For more information, please contact: [phone] * Full Code (Latest Code Status on File) Date Activated Date Inactivated Comments 10/31/2022 7:03 AM 10/31/2022 11:06 AM -Attempt Re suscitation if person has no pulse and is not breathing. -If no pulse or not breathing attempt CPR/CODE. -Call Rapid Response if patient is in distress. Care Teams Director Financial Systems Relationship Specialty Start Date End Date Derrick Freitas MD [address] [place] [id number] PCP - General Family Medicine 10/23/22
--- OUTSIDE RECORDS SUMMARY | 2025-03-27 09:58 | XMS_ITS | Clinical Summary ---
Author Organization [email or web address] ([place], [place], [place], [place]) Address [address] [place] [address] Care Team Providers Care Tab Machine Operator Name Role Phone Derrick Freitas MD Primary Care Provider [phone] Allergies No known active allergies Medications docusate [...] Date Lico rded Speak language other than Bahraini at home Not on file 10/08/2023 Want [...] and Screening (12+) 10/3110/31/2022 COVID-19 VACCINE ( season) 2024 Influenza Vaccine (#1) 2025 DTAP/TDAP/TD VACCINES (2 - Td or Tdap) 06/21/2028 Colonoscopy 10/31/2032 10/31/2022 Colorectal Cancer Screening 10/31/2032 Respiratory Syncytial Virus (RSV) Adult or (1 - 1-dose 75+ series) 2039 Insurance [facility] R Advance Directives For more information, please contact: [phone] * Full Code (Latest Code Status on File) Date Activated Date Inactivated Comments 10/31/2022 7:03 AM 10/31/2022 11:06 AM -Attempt Re suscitation if person has no pulse and is not breathing. -If no pulse or not breathing attempt CPR/CODE. -Call Rapid Response if patient is in distress. Care Teams Tab Machine Operator Relationship Specialty Start Date End Date Derrick Freitas MD [address] [place] [id number] PCP - General Family Medicine 10/23/22
== END 2025-03-23 23:59 | disposition home or self-care (01) ==
LOC: LAB.DROPOF 03-27 09:46
PROVIDERS: PCP Family Medicine; Visit Provider Family Medicine
DX: E03.9 Hypothyroidism, unspecified (principal); K50.90 Crohn's disease, unspecified, without complications; R79.89 Other specified abnormal findings of blood chemistry; Z12.5 Encounter for screening for malignant neoplasm of prostate; Z11.59 Encounter for screening for other viral diseases; Z13.1 Encounter for screening for diabetes mellitus
CPT/HCPCS: 80053; 80061; 80074; 82306; 83036; 84403; 84443; 85025; 87340; 87389

== ENCOUNTER 2025-04-04 19:18 | Outpatient (CLI) | payer OTHER, SELFPAY ==
--- OUTSIDE RECORDS SUMMARY | 2025-04-04 19:22 | XMS_ITS | Clinical Summary ---
Author Organization [employer] ([place], [place], [place], [place]) Address [address] [place] [address] Care Team Providers Care Machine Group Leader Name Role Phone Derrick Freitas MD Primary Care Provider [phone] Allergies No known active allergies Medications docusate [...] Date Lico rded Speak language other than Martiniquais at home Not on file 10/08/2023 Want [...] (1 - 1-dose 75+ series) 2039 Insurance [address] [place] [place] [address] [facility] R Advance Directives For more information, please contact: [phone] * Full Code (Latest Code Status on File) Date Activated Date Inactivated Comments 10/31/2022 7:03 AM 10/31/2022 11:06 AM -Attempt Re suscitation if person has no pulse and is not breathing. -If no pulse or not breathing attempt CPR/CODE. -Call Rapid Response if patient is in distress. Care Teams Machine Group Leader Relationship Specialty Start Date End Date Derrick Freitas MD [address] [place] [id number] PCP - General Family Medicine 10/23/22
--- OUTSIDE RECORDS SUMMARY | 2025-04-04 19:22 | XMS_ITS | Referral Summary ---
Author Organization [employer] ([place], [place], [place], [place]) Address [address] [place] [address] Care Team Providers Care Counter Pocket Sewer Name Role Phone Derrick Freitas MD Primary Care Provider [phone] Allergies No known active allergies Medications docusate [...] Date Lico rded Speak language other than Hebrew at home Not on file 10/08/2023 Want [...] Plan of Treatment Not on file Insurance [facility] UMR Advance Directives For more information, please contact: [phone] * Full Code (Latest Code Status on File) Date Activated Date Inactivated Comments 10/31/2022 7:03 AM 10/31/2022 11:06 AM -Attempt Re suscitation if person has no pulse and is not breathing. -If no pulse or not breathing attempt CPR/CODE. -Call Rapid Response if patient is in distress. Care Teams Counter Pocket Sewer Relationship Specialty Start Date End Date Derrick Freitas MD [address] [place] [id number] PCP - General Family Medicine 10/23/22
== END 2025-04-04 23:59 | disposition home or self-care (01) ==
LOC: LAB.DROPOF 19:20
PROVIDERS: PCP Family Medicine; Visit Provider Family Medicine
DX: Z12.5 Encounter for screening for malignant neoplasm of prostate (principal); R79.89 Other specified abnormal findings of blood chemistry
CPT/HCPCS: 84403; G0103